=== PATIENT | male | born 1975 | race Caucasian/White ===

== ENCOUNTER 2025-09-06 08:38 | Day surgery (SDC) | payer OTHER ==
[2025-08-18 10:21] VITALS: BMI 24.3
[2025-09-06] MEDS ORDERED: Lidocaine 1% PF 5 ML VIAL ONE (09:13)
[2025-09-06] MEDS ORDERED: PROPOFOL 60 ML ONE (09:13)
[2025-09-06] MEDS ORDERED: PROPOFOL 20 ML ONE (12:17)
== END 2025-09-06 13:08 | disposition home or self-care (01) ==
LOC: CSHSDC 08:38
PROVIDERS: ATTEND Surgery
PROC: 0DJD8ZZ Inspection of Lower Intestinal Tract, Via Natural or Artificial Opening Endoscopic (ICD-10-PCS; principal; 2025-09-06)
DX: Z12.11 Encounter for screening for malignant neoplasm of colon (principal); K57.30 Diverticulosis of large intestine without perforation or abscess without bleeding; Z87.891 Personal history of nicotine dependence; Z90.89 Acquired absence of other organs
CPT/HCPCS: J2250; J2704; J3010